=== PATIENT | male | born 1990 | race Caucasian/White ===

== ENCOUNTER → 2017-11-04 | Outpatient (REF) ==
[~2017-11-04] MED LIST: CEPH500C24 PO
== END ==
LOC: AUD 08:30
PROVIDERS: ATTEND Internal Medicine
DX: Z01.10 Encounter for examination of ears and hearing without abnormal findings (principal)
CPT/HCPCS: 92552

== ENCOUNTER 2018-08-26 11:37 | Emergency (ER) | payer BC, OTHER ==
--- NOTE | 2018-08-26 11:42 | ER Report ---
History and Physical Time Seen By MD: 11:43 HPI/ROS CHIEF COMPLAINT: Right calf pain HISTORY OF PRESENT ILLNESS: This is a 28-year-old male presents to the emergency room for right calf pain. 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 Unable to bear weight Patient is unable to extend or flex his right lower extremity without severe pain. No recent injuries. No surgeries. No recent illnesses, no fevers or chills. He is otherwise healthy. REVIEW OF SYSTEMS: Constitutional: No fever, no chills. Eyes: No discharge. ENT: No sore throat. Cardiovascular: No chest pain, no palpitations. Respiratory: No cough, no shortness of breath. Gastrointestinal: No abdominal pain, no vomiting. Genitourinary: No hematuria. Musculoskeletal: As above. Skin: No rashes. Neurological: No headache. Allergies: Coded Allergies: No Known Drug Allergies (Unverified , 08/26/18) Home Meds Active Scripts Cyclobenzaprine Hcl (CYCLOBENZAPRINE HCL) 10 Mg Tablet, 5-10 MG PO TID PRN for MUSCLE SPASMS, #9 TAB Prov:GIULIANA COATES BINDERY CUTTER OPERATOR-BC 08/26/18 Discontinued Scripts Cephalexin Monohydrate (CEPHALEXIN) 500 Mg Cap, 500 MG PO Q6H, #28 CAP TAKE 1 CAPSULE BY MOUTH EVERY SIX HOURS Prov:LLOYD MANUEL MD 11/09/15 Past Medical/Surgical History The patient has a past medical and surgical history of wisdom teeth extraction. Reviewed Nurses Notes: Yes Hx Smoking: No Smoking Status: Never Smoker Constitutional Vital Sign - Last 24 Hours 08/26/18 08/26/18 08/26/18 11:45 13:08 14:30 Temp 98.7 Pulse 121 103 92 Resp 18 B/P (MAP) 137/90 130/97 (108) 118/74 (89) Pulse Ox 94 91 O2 Delivery Room Air Physical Exam General Appearance: The patient is alert, has no immediate need for airway protection and no signs of toxicity, sitting up with right leg flexed, holding the posterior knee with an ice pack. Eyes: Pupils equal and round no pallor or injection. ENT, Mouth: Mucous membranes are moist. Respiratory: There are no retractions, lungs are clear to auscultation. Cardiovascular: Regular rate and rhythm. Gastrointestinal: Abdomen is soft and non tender, no masses, bowel sounds normal. Neurological: Alert and oriented 4. Moving all extremities. Following all commands. No focal neuro deficits. Skin: Warm and dry, no rashes. Musculoskeletal: Neck is supple non tender. Extremities negative Gallagher test. Pain elicited with firm palpation to the lateral aspect of the proximal right gastrocnemius, as well as the posterior knee. No crepitus, erythema or swelling identified. Unable to valgus or varus the knee, unable to assess anterior and posterior drawer. DIFFERENTIAL DIAGNOSIS: After history and physical exam differential diagnosis was considered for cramp, gastrocnemius tear, arterial claudication, compartment syndrome, DVT, Achilles tendon rupture subluxation and contusion. Medical Decision Making EKG/Imaging Imaging MENISCI: The medial meniscus is normal. There is a bucket-handle tear of the posterior horn of the lateral meniscus with meniscal tissue flipped anteriorly. CRUCIATES AND COLLATERALS: Normal ACL and PCL. Normal MCL and lateral collateral ligament complex. ARTICULAR CARTILAGE AND OSSEOUS STRUCTURES: No fracture or marrow replacing lesion. Medial Compartment: No focal cartilage defect in the medial compartment. Lateral Compartment: No focal cartilage defect. Patellofemoral Compartment: No focal cartilage defect. EXTENSOR MECHANISM: The quadriceps and patellar tendons are intact. Intact medial and lateral patellar retinacula. MISCELLANEOUS: No effusion. No Hanson's cyst. Both the medial and lateral heads of the gastrocnemius returned normal signal within the imaged region. There is no suggestion of a muscular strain or tear. IMPRESSION: 1. There is no tear of the gastrocnemius within the imaged region. 2. Bucket-handle tear of the posterior horn of the lateral meniscus near the posterior horn-body junction with meniscal tissue flipped anteriorly. 3. Intact cruciate and collateral ligaments. Report Dictated By: Judith Herring MD at 08/26/2018 2:44 PM Report E-Signed By: Judith Herring MD at 08/26/2018 2:53 PM WSN:[facility] Findings: No radiopaque metallic foreign bodies project over the orbits IMPRESSION: 1. No radiopaque metallic foreign bodies project over the orbits Report Dictated By: Asha Barbour MD at 08/26/2018 1:29 PM Report E-Signed By: Asha Barbour MD at 08/26/2018 1:30 PM WSN:[email or web address] KNEE 3 VIEW RIGHT Indication: post knee pain, while at work Comparison: None. Findings: Distal femur, proximal tibia and fibula, the patella demonstrate normal mineralization and alignment. Soft tissues are unremarkable. IMPRESSION: Normal right knee radiograph. Report Dictated By: Олег Patrickan at 08/26/2018 12:54 PM Report E-Signed By: Олег Allen at 08/26/2018 12:55 PM WSN:[email or web address] ED Course/Re-evaluation ED Course The patient was admitted to a room. A history and physical were obtained. Differential diagnoses were considered. An x-ray of the right knee was taken for any acute osseous abnormalities. Even the severity of the knee discomfort and inability to fully extend her flex the knee with the calf pain I did an MRI which did show a bucket tear of the meniscus. I reviewed the imaging results with the patient. He was placed in a knee immobilizer. Instructed to follow-up with [facility] for reexamination. I was also able to reduce the meniscus, relieving the patient's discomfort. Patient was also given 60 mg IM Toradol, 60 mg IM Norflex. Patient had significant improvement of pain. The patient had no other questions or concerns and was discharged home. Decision to Disposition Date: Aug 26, 2018 Decision to Disposition Time: 15:14 Depart Departure Latest Vital Signs Vital Signs Date Time Temp Pulse Resp B/P (MAP) Pulse Ox O2 Delivery O2 Flow Rate FiO2 08/26/18 14:30 92 118/74 (89) 91 08/26/18 11:45 98.7 18 Room Air Impression: Primary Impression: Right knee meniscal tear Condition: Improved Disposition: HOME OR SELF-CARE Referrals: LUCAS HOPKINS MD 5 Days New Scripts Cyclobenzaprine Hcl (CYCLOBENZAPRINE HCL) 10 Mg Tablet 5-10 MG PO TID PRN for MUSCLE SPASMS, #9 TAB Prov: GIULIANA COATES BINDERY CUTTER OPERATOR-BC 08/26/18 Patient Instructions: Meniscus Tear (ED) Additional Instructions: You have a meniscus tear of the right knee. Keep the immobilizer on for comfort. Follow up with [facility] within the next week for reevaluation. Take Ibuprofen or Tylenol as needed for pain. Take the Flexeril for muscle spasms and pain. Get plenty of rest. Drink plenty of water. Return to the ED for any other concerns or worsening symptoms. Problem Qualifiers Primary Impression: Right knee meniscal tear Tear current or old: current Encounter type: initial encounter Meniscus of knee: unspecified Meniscus tear of knee type: bucket-handle Qualified Codes: S83.200A - Bucket-handle tear of unspecified meniscus, current injury, right knee, initial encounter GIULIANA COATES BINDERY CUTTER OPERATOR-BC Aug 26, 2018 11:42
[2018-08-26] MEDS ORDERED: KETOROLAC 60 MG/2 ML VIAL IM ONE (12:05)
[2018-08-26] MEDS ORDERED: ORPHENADRINE 60MG/2ML INJ IM ONE (12:05)
--- NOTE | 2018-08-26 12:59 | RADIOLOGY IMAGING REPORT ---
FACILITY: [facility] - [place] PATIENT NAME: Star Valladares : 1990 MR: [id number] V: [id number] EXAM DATE: ORDERING PHYSICIAN: GIULIANA COATES TECHNOLOGIST: Location: [facility] [place] Patient: Star Valladares : 1990 Visit/Account:[id number] Date of Sevice: 08/26/2018 KNEE 3 VIEW RIGHT Indication: post knee pain, while at work Comparison: None. Findings: Distal femur, proximal tibia and fibula, the patella demonstrate normal mineralization and alignment. Soft tissues are unremarkable. IMPRESSION: Normal right knee radiograph. Report Dictated By: Олег Allen at 08/26/2018 12:54 PM Report E-Signed By: Олег Allen at 08/26/2018 12:55 PM WSN:[email or web address]
--- NOTE | 2018-08-26 13:34 | RADIOLOGY IMAGING REPORT ---
FACILITY: [facility] - [place] PATIENT NAME: Star Valladares : 1990 MR: [id number] V: [id number] EXAM DATE: ORDERING PHYSICIAN: GIULIANA COATES TECHNOLOGIST: Location: [facility] Patient: Star Valladares : 1990 Visit/Account:[id number] Date of Sevice: 08/26/2018 Exam type: ORBITS FOREIGN BODY 1 VIEW History: Pre-MRI screening Comparison: None. Findings: No radiopaque metallic foreign bodies project over the orbits IMPRESSION: 1. No radiopaque metallic foreign bodies project over the orbits Report Dictated By: Asha Barbour MD at 08/26/2018 1:29 PM Report E-Signed By: Asha Barbour MD at 08/26/2018 1:30 PM WSN:[email or web address]
[2018-08-26 14:30] VITALS: BP 118/74
--- NOTE | 2018-08-26 14:58 | RADIOLOGY IMAGING REPORT ---
FACILITY: [facility] - [place] PATIENT NAME: Star Valladares : 1990 MR: [id number] V: [id number] EXAM DATE: ORDERING PHYSICIAN: GIULIANA COATES TECHNOLOGIST: Location: [facility] - [place], [place] Patient: Star Valladares : 1990 Visit/Account:[id number] Date of Sevice: 08/26/2018 KNEE RIGHT W/O CONTRAST DATE: 08/26/2018 1:05 PM TECHNIQUE: Multisequence, multiplanar MR imaging was performed of the right knee without intravenous contrast INDICATION: Posterior knee injury. Possible gastrocnemius tear. COMPARISON: Knee radiographs of the same day FINDINGS: MENISCI: The medial meniscus is normal. There is a bucket-handle tear of the posterior horn of the l ateral meniscus with meniscal tissue flipped anteriorly. CRUCIATES AND COLLATERALS: Normal ACL and PCL. Normal MCL and lateral collateral ligament complex. ARTICULAR CARTILAGE AND OSSEOUS STRUCTURES: No fracture or marrow replacing lesion. Medial Compartment: No focal cartilage defect in the medial compartment. Lateral Compartment: No focal cartilage defect. Patellofemoral Compartment: No focal cartilage defect. EXTENSOR MECHANISM: The quadriceps and patellar tendons are intact. Intact medial and lateral patell ar retinacula. MISCELLANEOUS: No effusion. No Hanson's cyst. Both the medial and lateral heads of the gastrocnemius returned normal signal within the imaged region. There is no suggestion of a muscular strain or tea r. IMPRESSION: 1. There is no tear of the gastrocnemius within the imaged region. 2. Bucket-handle tear of the posterior horn of the lateral meniscus near the posterior horn-body lucinda ction with meniscal tissue flipped anteriorly. 3. Intact cruciate and collateral ligaments. Report Dictated By: Judith Herring MD at 08/26/2018 2:44 PM Report E-Signed By: Judith Herring MD at 08/26/2018 2:53 PM WSN:[email or web address]
[2018-08-26] MEDS ORDERED: CYCL10TA29 PO (15:18)
== END 2018-08-26 16:00 | disposition home or self-care (01) ==
LOC: ER 11:41
DX: S83.200A Bucket-handle tear of unspecified meniscus, current injury, right knee, initial encounter (principal)
CPT/HCPCS: 70030; 73562; 73721; 96372; 99284; J1885; J2360; L1830